=== PATIENT | female | born 1955 | race Caucasian/White ===

== ENCOUNTER 2018-01-07 07:47 | Day surgery (SDC) | payer BC ==
[~2018-01-07 07:47] MED LIST: CEFAZOLIN 1 GM INJ; CEFAZOLIN 2 GM/50 ML (PMX) 50 ML IVPB; SOD CHLORIDE 0.9% 1,000 ML IV
[2018-01-07 09:48] LABS: ADD MAN DIFF? NO
[2018-01-07 09:52] LABS: BASOPHIL # 0.1 10^3/ul (0.0-0.1); BASOPHILS % 0.9 % (0.0-2.0); EOSINOPHILS # 0.3 10^3/ul (0.0-0.5); HEMATOCRIT 34.7 % (37.0-47.0); HEMOGLOBIN 11.6 g/dl (12.0-16.0); LYMPHOCYTES # 1.4 10^3/ul (0.8-2.9); LYMPHOCYTES % 25.7 % (15.0-51.0); MEAN CORPUSCULAR HEMOGLOBIN 32.3 pg (29.0-33.0); MEAN CORPUSCULAR HGB CONC 33.4 g/dl (32.0-37.0); MEAN CORPUSCULAR VOLUME 96.7 fl (82.0-101.0); MEAN PLATELET VOLUME 9.6 fl (7.4-10.4); MONOCYTE # 0.4 10^3/ul (0.3-0.9); MONOCYTES % 7.9 % (0.0-11.0); NEUTROPHIL # 3.3 10^3/ul (1.6-7.5); NEUTROPHILS % 60.3 % (39.0-77.0); PLATELET COUNT 332 10^3/UL (140-415); RED BLOOD COUNT 3.59 10^6/ul (4.20-5.40); RED CELL DISTRIBUTION WIDTH 13.2 % (11.5-14.5)
[2018-01-07 09:52] LABS: WHITE BLOOD COUNT 5.5 10^3/ul (4.8-10.8)
[2018-01-07 10:11] LABS: ALANINE AMINOTRANSFERASE 25 IU/L (13-69); ALBUMIN 4.3 g/dl (3.3-4.9); ALBUMIN/GLOBULIN RATIO 1.34; ALKALINE PHOSPHATASE 93 IU/L (42-121); ANION GAP 14 (8-16); ASPARTATE AMINO TRANSFERASE 22 IU/L (15-46); BILIRUBIN,INDIRECT 0.3 mg/dl (0-1.1); BILIRUBIN,TOTAL 0.3 mg/dl (0.2-1.3); CARBON DIOXIDE 27 mmol/L (21-31); CHLORIDE 110 mmol/L (97-110); GLUCOSE 83 mg/dl (70-220); TOTAL PROTEIN 7.5 g/dl (6.1-8.1)
[2018-01-07 10:18] LABS: BLOOD UREA NITROGEN 19 mg/dl (7-20); CALCIUM 9.4 mg/dl (8.4-10.2); CREATININE 0.79 mg/dl (0.44-1.00); POTASSIUM 4.6 mmol/L (3.5-5.1)
[2018-01-07 10:19] LABS: INR 0.89; PROTIME 12.1 Sec (11.9-14.9); PT RATIO 0.9; SODIUM 146 mmol/L (135-144)
[2018-01-07 10:20] LABS: PARTIAL THROMBOPLASTIN TIME 29.3 Sec (25.0-35.0)
[2018-01-07] MEDS: BUPIVACAINE 0.5%/EPI (SDV) 30 ML INJ (12:11)
[2018-01-07] MEDS: HYDROmorphONE 1 MG/5 ML IV SYRINGE IV (12:55)
[2018-01-07] MEDS ORDERED: ONDANSETRON 4 MG INJ IV (13:00)
[2018-01-07] MEDS ORDERED: KETOROLAC 30 MG INJ IV (13:00)
[2018-01-07] MEDS ORDERED: FENTAnyl 50 MCG/ML VIAL IV (13:00)
[2018-01-07] MEDS ORDERED: PROPOFOL 20 ML (16:19)
[2018-01-07] MEDS ORDERED: LIDOCAINE 2% (SDV) 5 ML INJ (16:19)
[2018-01-07] MEDS ORDERED: DEXAMETHASONE 4 MG/ML 1 ML INJ (16:19)
[2018-01-07] MEDS ORDERED: FENTAnyl 50 MCG/ML VIAL (16:19)
[2018-01-07] MEDS ORDERED: ONDANSETRON 4 MG INJ (16:19)
== END 2018-01-11 09:59 | disposition home or self-care (01) ==
LOC: SDS 07:47
DX: D07.1 Carcinoma in situ of vulva (principal); I10 Essential (primary) hypertension; E78.5 Hyperlipidemia, unspecified; F17.200 Nicotine dependence, unspecified, uncomplicated
CPT/HCPCS: 14040; 71045; 80053; 85025; 85610; 85730; 88305; 93005